=== PATIENT | male | born 1980 | race Caucasian/White ===

== ENCOUNTER 2021-11-27 20:00 | Outpatient (CLI) | payer BC, SELFPAY | END 2021-11-27 20:01 | disposition home or self-care (01) | LOC: SLEEP 11-28 06:05 | PROVIDERS: PCP Nurse Practitioner Family; Visit Provider Nurse Practitioner Family | DX: G47.33 Obstructive sleep apnea (adult) (pediatric) (principal) | CPT/HCPCS: 95810 ==

== ENCOUNTER 2022-01-22 20:00 | Outpatient (CLI) | payer BC, SELFPAY | END 2022-01-22 20:01 | disposition home or self-care (01) | LOC: SLEEP 01-23 07:20 | PROVIDERS: PCP Nurse Practitioner Family; Visit Provider Nurse Practitioner Family | DX: G47.33 Obstructive sleep apnea (adult) (pediatric) (principal) | CPT/HCPCS: 95811 ==